=== PATIENT | male | born 1935 | race Caucasian/White ===

== ENCOUNTER 2017-04-09 03:09 | Emergency (ER) | payer BC, MEDICARE ==
[~2017-04-09] VITALS: Ht 188 cm; Wt 82.6 kg
[~2017-04-09 03:09] MED LIST: AMLO-147 PO; CLON0.2T12 PO; LABE100T3 PO; VALS320T11 PO
[2017-04-09 03:19] VITALS: Ht 188 cm; Wt 82.6 kg
[2017-04-09] MEDS ORDERED: HYDR-906 PO (04:23)
[2017-04-09] MEDS ORDERED: CEPH-443 PO (04:23)
[2017-04-09] MEDS ORDERED: SULF1TAB31 PO (04:23)
[2017-04-09] MEDS ORDERED: IBUP400T22 PO (04:23)
--- NOTE | 2017-04-09 05:44 | ERD ---
ER Documentation Chief Complaint Chief Complaint neck pain since yesterday. "my cyst is painful" vicodin 30 min [employer] HPI 81-year-old male presents here to emergency department for complaints of a bump in the right neck area, patient has a history of sebaceous cyst of affected area , now is been painful started yesterday. Patient is complaining of pain throbbing pain 4/10 scale, as was upon touching the area. Patient denies any fever chills. Patient took some Vicodin at home with mild relief. ROS All systems reviewed and are negative except as per history of present illness. Medications Home Meds Active Scripts Sulfamethoxazole/Trimethoprim* (Bactrim Ds* Tablet) 1 Each Tablet, 1 TAB PO BID for 10 Days, #20 TAB Prov:KARSON MARTINEZ NP 04/09/17 Cephalexin* (Keflex*) 500 Mg Capsule, 500 MG PO QID for 10 Days, CAP Prov:KARSON MARTINEZ NP 04/09/17 Hydrocodone/Acetaminophen ([place] 5-325 Tablet) 1 Each Tablet, 1 TAB PO Q6H Y for SEVERE PAIN LEVEL 7-10, #20 TAB Prov:KARSON MARTINEZ NP 04/09/17 Ibuprofen* (Motrin*) 400 Mg Tab, 400 MG PO Q6H Y for PAIN AND OR ELEVATED TEMP, #30 TAB Prov:KARSON MARTINEZ NP 04/09/17 Reported Medications Valsartan* (Diovan*) 320 Mg Tablet, 160 MG PO DAILY 02/05/13 Labetalol Hcl* (Labetalol Hcl*) 100 Mg Tablet, 100 MG PO HS 02/05/13 Labetalol Hcl* (Labetalol Hcl*) 100 Mg Tablet, 200 MG PO PM 02/05/13 Labetalol Hcl* (Labetalol Hcl*) 100 Mg Tablet, 50 MG PO AM 02/05/13 Clonidine Hcl* (Catapres*) 0.2 Mg Tablet, 0.2 MG PO HS 02/05/13 Amlodipine Besylate* (Amlodipine Besylate*) 10 Mg Tablet, 10 MG PO DAILY 02/05/13 Allergies Allergies: Coded Allergies: No Known Allergy (Unverified , 04/09/17) PMhx/Soc History of Surgery: Yes (L4 L5 Distectomy) Anesthesia Reaction: No 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 CHEST: Clear to auscultation bilaterally. There are no rales, wheezes or rhonchi. HEART: Regular rate and rhythm. No murmurs, clicks, rubs or gallops. No S3 or S4. ABDOMEN: Soft, nontender and nondistended. Good bowel sounds. No rebound or guarding. No gross peritonitis. No gross organomegaly or masses. No Samuel sign or McBurney point tenderness. BACK: No midline or flank tenderness. EXTREMITIES: Equal pulses bilaterally. There is no peripheral clubbing, cyanosis or edema. No focal swelling or erythema. Full range of motion. Grossly neurovascularly intact. NEURO: Alert and oriented. Cranial nerves 2-12 intact. Motor strength in all 4 extremities with 5/5 strength. Sensation grossly intact. Normal speech and gait. SKIN: Noted 3 cm diameter erythematous indurated area in the right neck area, tenderness on palpation, no fluctuance noted. There is no apparent rash or petechia. The skin is warm and dry. HEMATOLOGIC AND LYMPHATIC: There is no evidence of excessive bruising or lymphedema. No gross cervical, axillary, or inguinal lymphadenopathy. Procedures/MDM Medical decision making: Patient symptoms was likely is consistent with a soft tissue abscess, this time, it is not fluctuant, incision and drainage not indicated at this time. No symptoms of sepsis, patient appears well and is hemodynamically stable. Patient was started on antibiotics, Bactrim and Keflex , ibuprofen and [place] for pain, is advised to return in 48 hours for recheck and return sooner for any worsening symptoms. Patient was advised to take medications as prescribed. Disposition: Home. Stable. Departure Diagnosis: Primary Impression: Soft tissue abscess Condition: Stable Patient Instructions: Abscess, Antiobiotic Treatment Only KARSON MARTINEZ NP Apr 09, 2017 05:44
== END 2017-04-09 04:38 | disposition home or self-care (01) ==
LOC: FTE 03:09
DX: L02.11 Cutaneous abscess of neck (principal); I10 Essential (primary) hypertension
CPT/HCPCS: 99284